=== PATIENT | female | born 1930 | race Hispanic/Latino ===

== ENCOUNTER 2018-09-27 10:07 | Outpatient (CLI) | payer MEDICARE, BC | END 2018-09-27 10:08 | disposition home or self-care (01) | LOC: LAB 10:07 ==

== ENCOUNTER 2018-10-06 08:24 | Outpatient (CLI) | payer MEDICARE, BC | END 2018-10-06 08:25 | disposition home or self-care (01) | LOC: CARDIO 08:24 ==